=== PATIENT | female | born 1955 | race Caucasian/White ===

== ENCOUNTER 2023-05-12 11:12 | Inpatient (IN) | payer MEDICARE, MEDICAID ==
[~2023-05-12] VITALS: Ht 162.6 cm; Wt 120.7 kg
[2023-05-12 11:39] LABS: HEMATOCRIT. 37.6 % (36.0-48.0); HEMOGLOBIN. 12.3 g/dL (12.0-16.0); LYMPHOCYTES % 22.1 % (20.0-50.0); MEAN CORPUSCULAR HEMOGLOBIN 28.9 pg (28.0-32.0); MEAN CORPUSCULAR HGB CONC 32.7 g/dL (31.0-37.0); MEAN CORPUSCULAR VOLUME 88.5 fL (81.0-99.0); MEAN PLATELET VOLUME 7.2 fl (7.4-10.4); MONOCYTES % 6.2 % (2.0-8.0); NEUTROPHILS % 66.7 % (40.0-76.0); PLATELET 272 x1000/uL (130-400); RED BLOOD CELL COUNT 4.25 mill/uL (4.2-5.4); WHITE BLOOD COUNT 8.7 x1000/uL (4.5-11.0)
[2023-05-12 12:01] LABS: CLARITY URINE CLOUDY (CLEAR); COLOR URINE YELLOW (YELLOW); GLUCOSE URINE 2+ (NEGATIVE); KETONES URINE NEGATIVE (NEGATIVE); LEUKOCYTE ESTERASE URINE 2+ (NEGATIVE); NITRITE URINE NEGATIVE (NEGATIVE); OCCULT BLOOD URINE NEGATIVE (NEGATIVE); PROTEIN URINE NEGATIVE (NEGATIVE); SPECIFIC GRAVITY URINE 1.016 (1.005-1.030); UROBILINOGEN URINE 0.2 E.U./dL (0.2-1.0)
[2023-05-12 12:04] LABS: ALANINE AMINOTRANSFERASE < 7 IU/L (10-49); ALBUMIN 4.5 g/dL (3.2-4.8); ASPARTATE AMINOTRANSFERASE 14 IU/L (<34); BILIRUBIN TOTAL 0.4 mg/dL (0.1-1.0); CALCIUM 9.2 mg/dL (8.7-10.4); CARBON DIOXIDE 19 mEq/L (21-32); CHLORIDE 108 mEq/L (98-107); CREATININE 3.2 mg/dL (0.6-1.0); GLUCOSE 200 mg/dL (70-105); SODIUM 138 mEq/L (136-145); UREA NITROGEN BLOOD 48 mg/dL (9-23)
[2023-05-12] MEDS: SODIUM CHLORIDE 0.9% 1,000 ML IV ONE (12:15)
[2023-05-12 12:28] LABS: WBC URINE 15-25 /hpf (0-2)
[2023-05-12 12:29] LABS: BACTERIA URINE 2+; RBC URINE NONE SEEN /hpf (0-2); SQUAMOUS EPITHELIAL CELL URINE 2+ /lpf (RARE/1+)
[2023-05-12] MEDS ORDERED: ACETAMINOPHEN 650MG/20.3ML UDC GT PRN (13:00)
[2023-05-12] MEDS: SODIUM CHLORIDE 0.9% 1,000 ML IV SCH (13:00)
[2023-05-12] MEDS ORDERED: DIPHENHYDRAMINE 50MG/ML VIAL IV PRN (13:00)
[2023-05-12] MEDS ORDERED: MORPHINE SULFATE 2 MG/ML CPJ (NOT FOR IM USE) IV PRN (13:00)
[2023-05-12] MEDS ORDERED: HYDROCODONE/ACETAMINOPHEN 7.5/325MG TABLET PO PRN (13:00)
[2023-05-12] MEDS ORDERED: NALOXONE HCL 0.4MG/ML VIAL IV PRN (13:15)
[2023-05-12] MEDS: ENOXAPARIN 40MG/0.4ML SYR SUBCUT SCH (14:00)
[2023-05-12] MEDS ORDERED: DEXTROSE 50% WATER 50ML SYRINGE IV PRN (16:00)
[2023-05-12] MEDS: CEFTRIAXONE 1GM/50ML 50 ML IV SCH (17:15)
[2023-05-12] MEDS: BLOOD SUGAR DIAGNOSTIC STRIP TEST SCH (17:49)
[2023-05-12] MEDS: INSULIN LISPRO 100 UNITS/ML SUBCUT SCH (17:51)
[2023-05-12 20:03] LABS: SODIUM URINE RANDOM 35 mEq/L
[2023-05-12 20:30] LABS: OSMOLALITY URINE 396 mOsm/kg (500-850)
[2023-05-12 21:10] VITALS: BP 129/48; PULSE 81; RESP 20; TEMP 97
[2023-05-13] VITALS: BP 120/61; PULSE 87; RESP 19; TEMP 98.8
[2023-05-13 04:00] VITALS: BP 123/63; PULSE 85; RESP 20; TEMP 98.1
[2023-05-13 06:25] LABS: EOSINOPHILS % 4.9 % (0.0-5.0); HEMOGLOBIN. 11.1 g/dL (12.0-16.0); LYMPHOCYTES % 25.7 % (20.0-50.0); MEAN CORPUSCULAR HEMOGLOBIN 28.3 pg (28.0-32.0); MEAN CORPUSCULAR HGB CONC 32.7 g/dL (31.0-37.0); MEAN CORPUSCULAR VOLUME 86.4 fL (81.0-99.0); MEAN PLATELET VOLUME 7.6 fl (7.4-10.4); MONOCYTES % 8.7 % (2.0-8.0); NEUTROPHILS % 59.7 % (40.0-76.0); PLATELET 238 x1000/uL (130-400); RED BLOOD CELL COUNT 3.93 mill/uL (4.2-5.4); RED CELL DISTRIBUTION WIDTH 14.1 % (11.6-14.6); WHITE BLOOD COUNT 6.2 x1000/uL (4.5-11.0)
[2023-05-13 06:26] LABS: CALCIUM 8.5 mg/dL (8.7-10.4); CARBON DIOXIDE 20 mEq/L (21-32); CHLORIDE 111 mEq/L (98-107); CREATININE 3.1 mg/dL (0.6-1.0); GLUCOSE 112 mg/dL (70-105); PHOSPHORUS 3.4 mg/dL (2.5-4.9); POTASSIUM 4.1 mEq/L (3.5-5.1); SODIUM 140 mEq/L (136-145); UREA NITROGEN BLOOD 51 mg/dL (9-23)
[2023-05-13 08:00] VITALS: BP 126/72; PULSE 91; RESP 18; TEMP 98.1
[2023-05-13] MEDS: THIAMINE HCL 100MG TABLET PO SCH (09:24)
[2023-05-13] MEDS: ENOXAPARIN 30MG/0.3ML SYR SUBCUT SCH (09:25)
[2023-05-13] MEDS: LEVOTHYROXINE SODIUM 88MCG TABLET PO SCH (09:33)
[2023-05-13] MEDS: BRIMONIDINE 0.2% OPHTH DROPS 5ML BOTHEYE SCH (11:36)
[2023-05-13 12:00] VITALS: BP 115/66; PULSE 82; RESP 20; TEMP 96.6
[2023-05-13 12:49] LABS: CREATININE URINE RANDOM 136.3 mg/dL
[2023-05-13 16:00] VITALS: BP 105/67; PULSE 75; RESP 18; TEMP 97.9
[2023-05-13] MEDS ORDERED: ENOXAPARIN 30MG/0.3ML SYR SUBCUT SCH (16:00)
[2023-05-13] MEDS: CEFTRIAXONE 1GM/50ML 50 ML IV SCH (16:52)
[2023-05-13] MEDS: ENOXAPARIN 100MG/ML SYR SUBCUT SCH (18:28)
[2023-05-13 20:00] VITALS: BP 120/54; PULSE 86; RESP 20; TEMP 98
[2023-05-13] MEDS ORDERED: PNEUMOCOCCAL 23-VAL P-SAC VAC 0.5 ML IM ONE (21:00)
[2023-05-13] MEDS ORDERED: INFLUENZA VACCINE 05/PF 0.5 ML SYRINGE IM ONE (21:00)
[2023-05-13] MEDS: ATORVASTATIN CALCIUM 40MG TABLET PO SCH (21:18)
[2023-05-14] VITALS: BP 116/45; PULSE 79; RESP 15; TEMP 97.9
[2023-05-14 04:00] VITALS: BP 105/62; PULSE 90; RESP 17; TEMP 98.2
[2023-05-14] MEDS: ACETAMINOPHEN 325MG TABLET PO PRN (06:28)
[2023-05-14 08:00] VITALS: BP 112/66; PULSE 88; RESP 18; TEMP 98.4
[2023-05-14] MEDS: ONDANSETRON HCL 4MG/2ML INJ IV PRN (08:28)
[2023-05-14 09:21] LABS: CALCIUM 8.4 mg/dL (8.7-10.4); CREATININE 3.1 mg/dL (0.6-1.0); POTASSIUM 4.2 mEq/L (3.5-5.1)
[2023-05-14 12:00] VITALS: BP 115/68; PULSE 86; RESP 19; TEMP 98.7
[2023-05-14 16:00] VITALS: BP 109/75; PULSE 83; RESP 18; TEMP 97.3
[2023-05-14] MEDS: ENOXAPARIN 120MG/0.8ML SYR SUBCUT SCH (17:01)
[2023-05-14 20:00] VITALS: BP 123/54; PULSE 75; RESP 20; TEMP 98.1
[2023-05-14] MEDS ORDERED: APIX2.5T PO (22:22)
[2023-05-15] VITALS: BP 119/64; PULSE 70; RESP 18; TEMP 98
[2023-05-15 04:00] VITALS: BP 115/62; PULSE 69; RESP 17; TEMP 97.8
[2023-05-15 07:12] LABS: BASOPHILS % 0.9 % (0.0-2.0); EOSINOPHILS % 5.7 % (0.0-5.0); HEMATOCRIT. 33.8 % (36.0-48.0); HEMOGLOBIN. 10.9 g/dL (12.0-16.0); LYMPHOCYTES % 30.3 % (20.0-50.0); MEAN CORPUSCULAR HEMOGLOBIN 28.3 pg (28.0-32.0); MEAN CORPUSCULAR HGB CONC 32.3 g/dL (31.0-37.0); MEAN CORPUSCULAR VOLUME 87.6 fL (81.0-99.0); MEAN PLATELET VOLUME 7.9 fl (7.4-10.4); MONOCYTES % 8.7 % (2.0-8.0); NEUTROPHILS % 54.4 % (40.0-76.0); PLATELET 238 x1000/uL (130-400); RED BLOOD CELL COUNT 3.86 mill/uL (4.2-5.4); RED CELL DISTRIBUTION WIDTH 14.1 % (11.6-14.6); WHITE BLOOD COUNT 6.3 x1000/uL (4.5-11.0)
[2023-05-15 07:21] LABS: CALCIUM 8.7 mg/dL (8.7-10.4); CARBON DIOXIDE 17 mEq/L (21-32); CHLORIDE 112 mEq/L (98-107); CREATININE 2.8 mg/dL (0.6-1.0); GLUCOSE 101 mg/dL (70-105); PHOSPHORUS 3.7 mg/dL (2.5-4.9); POTASSIUM 4.1 mEq/L (3.5-5.1); SODIUM 141 mEq/L (136-145); UREA NITROGEN BLOOD 45 mg/dL (9-23)
[2023-05-15 08:00] VITALS: BP 134/63; PULSE 82; RESP 20; TEMP 98.1
[2023-05-15] MEDS: MAGNESIUM 1 G PREMIX 100 ML IV NR (10:03)
[2023-05-15 12:00] VITALS: BP 113/52; PULSE 93; RESP 18; TEMP 97.5
[2023-05-15 13:11] LABS: *CREATININE RANDOM URINE 133.6 mg/dL (Not Estab.); MICROALBUMIN RANDOM URINE 29.1 ug/mL (Not Estab.)
[2023-05-15 16:00] VITALS: BP 136/62; PULSE 95; RESP 20; TEMP 97.9
[2023-05-15 19:18] VITALS: BP 136/62; PULSE 95; TEMP 97.9; O2SAT 97
== END 2023-05-15 20:26 | disposition home or self-care (01) | DRG 683 ==
LOC: ER 11:12 → 8WST 13:02 → EDBEDREQ 13:04 → EDBEDREQSVC 17:54
PROVIDERS: ADMIT Internal Medicine Nephrology; ATTEND Internal Medicine Nephrology
DX: N17.9 Acute kidney failure, unspecified (principal); E87.20 Acidosis, unspecified; N39.0 Urinary tract infection, site not specified; I82.432 Acute embolism and thrombosis of left popliteal vein; Z68.42 Body mass index [BMI] 45.0-49.9, adult; E11.22 Type 2 diabetes mellitus with diabetic chronic kidney disease; I12.9 Hypertensive chronic kidney disease with stage 1 through stage 4 chronic kidney disease, or unspecified chronic kidney disease; N18.9 Chronic kidney disease, unspecified; E66.01 Morbid (severe) obesity due to excess calories; E78.5 Hyperlipidemia, unspecified; E03.9 Hypothyroidism, unspecified; D63.1 Anemia in chronic kidney disease; E11.21 Type 2 diabetes mellitus with diabetic nephropathy; Z79.899 Other long term (current) drug therapy
CPT/HCPCS: 36415; 71045; 76770; 80048; 80053; 81003; 82043; 82570; 82962; 83036; 83735; 83930; 83935; 84100; 84300; 85025; 90686; 90732; 93005; 93306; 93970; 99285; J0696; J1650; J2405; J3475; J7030

== ENCOUNTER → 2024-07-21 | Outpatient (CLI) | payer MEDICARE, MEDICAID ==
[~2024-07-21] MED LIST: APIX2.5T PO
[2024-07-21 11:33] LABS: CLARITY URINE CLEAR (CLEAR); COLOR URINE YELLOW (YELLOW); GLUCOSE URINE NEGATIVE (NEGATIVE); KETONES URINE NEGATIVE (NEGATIVE); LEUKOCYTE ESTERASE URINE TRACE (NEGATIVE); NITRITE URINE NEGATIVE (NEGATIVE); OCCULT BLOOD URINE NEGATIVE (NEGATIVE); PROTEIN URINE NEGATIVE (NEGATIVE); SPECIFIC GRAVITY URINE 1.015 (1.005-1.030); UROBILINOGEN URINE 0.2 E.U./dL (0.2-1.0)
[2024-07-21 11:40] LABS: CARBON DIOXIDE 20 mEq/L (21-32); CHLORIDE 109 mEq/L (98-107); POTASSIUM 4.4 mEq/L (3.5-5.1); SODIUM 140 mEq/L (136-145)
[2024-07-21 11:45] LABS: CREATININE 2.8 mg/dL (0.6-1.0); GLUCOSE 153 mg/dL (70-105); GLUCOSE FASTING 153 mg/dL (70-105)
[2024-07-21 11:46] LABS: TRIGLYCERIDE 157 mg/dL (0-150); UREA NITROGEN BLOOD 45 mg/dL (9-23)
[2024-07-21 11:47] LABS: ALANINE AMINOTRANSFERASE < 7 IU/L (10-49); ALBUMIN 4.6 g/dL (3.2-4.8); ASPARTATE AMINOTRANSFERASE 13 IU/L (<34); LDL CHOLESTEROL 71 mg/dL (5-100)
[2024-07-21 11:48] LABS: BILIRUBIN TOTAL 0.4 mg/dL (0.1-1.0); CHOLESTEROL 131 mg/dL (<200); HDL CHOLESTEROL 37 mg/dL (>65); PHOSPHORUS 3.8 mg/dL (2.5-4.9); PROTEIN TOTAL 7.8 g/dL (6.0-8.3)
[2024-07-21 11:56] LABS: BACTERIA URINE 1+; RBC URINE 0-2 /hpf (0-2); SQUAMOUS EPITHELIAL CELL URINE 2+ /lpf (RARE/1+); YEAST URINE NONE SEEN
[2024-07-21 13:54] LABS: BASOPHILS % 0.6 % (0.0-2.0); EOSINOPHILS % 2.1 % (0.0-5.0); HEMATOCRIT. 37.1 % (36.0-48.0); HEMOGLOBIN. 12.2 g/dL (12.0-16.0); LYMPHOCYTES % 21.4 % (20.0-50.0); MEAN CORPUSCULAR HEMOGLOBIN 28.5 pg (28.0-32.0); MEAN CORPUSCULAR HGB CONC 32.8 g/dL (31.0-37.0); MEAN CORPUSCULAR VOLUME 86.9 fL (81.0-99.0); MEAN PLATELET VOLUME 7.8 fl (7.4-10.4); MONOCYTES % 5.1 % (2.0-8.0); NEUTROPHILS % 70.8 % (40.0-76.0); PLATELET 330 x1000/uL (130-400); RED BLOOD CELL COUNT 4.27 mill/uL (4.2-5.4); RED CELL DISTRIBUTION WIDTH 13.9 % (11.6-14.6); WHITE BLOOD COUNT 10.9 x1000/uL (4.5-11.0)
== END | disposition home or self-care (01) ==
LOC: LAB 10:48
PROVIDERS: ATTEND Internal Medicine Nephrology
DX: I12.9 Hypertensive chronic kidney disease with stage 1 through stage 4 chronic kidney disease, or unspecified chronic kidney disease (principal); N18.4 Chronic kidney disease, stage 4 (severe); E03.9 Hypothyroidism, unspecified; E78.00 Pure hypercholesterolemia, unspecified; Z79.899 Other long term (current) drug therapy
CPT/HCPCS: 36415; 80053; 80061; 81003; 82306; 82947; 83036; 83970; 84100; 85025